=== PATIENT | male | born 2000 | race Caucasian/White ===

== ENCOUNTER 2024-01-07 06:28 | Inpatient (IN) | payer OTHER, SELFPAY ==
[2024-01-07] VITALS (12 sets, daily range): BP systolic 100–119; BP diastolic 55–79; BMI 20.1
--- NOTE | 2024-01-07 04:17 | DOWNTIME ---
There was a [employer] Senior Procurement Specialist Downtime on 12/10/2023 from 0100 to 12/10/2023 at 0300. Downtime documentation of patient's care, including medication administrations, has been reconciled in the electronic record per guidelines. Refer to the
patient's paper chart under the miscellaneous tab to see printed paper medication records and downtime forms.
--- NOTE | 2024-01-07 04:34 | DOWNTIME ---
There was a [employer] Control Panel Builder Downtime on 01/07/2024 from 0100 to 01/07/2024 at 0355. Downtime documentation of patient's care, including medication administrations, has been reconciled in the electronic record per guidelines. Refer to the
patient's paper chart under the miscellaneous tab to see printed paper medication records and downtime forms.
[2024-01-07 04:51] LABS: % Basophils 0.2 % (0-2); % Immature Granulocytes 0.5 % (0-0.5); % Lymphocytes 5.3 % (20.5-51.1); % Monocytes 4.9 % (1.7-9.3); % Neutrophils 89.1 % (42.2-75.2); Absolute Immature Granulocytes 0.1 10^3/uL (0-0.05); Absolute Lymphocytes 1.1 10^3/uL (1.2-3.4); Absolute Neutrophils 18.4 10^3/uL (1.4-6.5); Hematocrit 43.2 % (39.0-52.0); Hemoglobin 15.7 g/dL (13.0-18.0); Mean Corp Hgb Conc. 36.3 g/dL (33.0-37.0); Mean Corpuscular Hgb 30.1 pg (27.0-31.0); Mean Corpuscular Volume 82.9 fL (80.0-94.0); Mean Platelet Volume 9.4 fL (7.4-10.4); Nucleated Red Blood Cells % 0 % (-); Platelet Count 239 10^3/uL (130-400); Red Blood Cell Count 5.21 10^6/uL (4.70-6.10); Red Cell Dist. Width 11.9 % (11.5-14.5); White Blood Cell Count 20.6 10^3/uL (4.8-10.8)
--- NOTE | 2024-01-07 04:52 | ED.GENMED ---
History of Present Illness
<LANA Lawrence - Last Filed: 01/07/24 06:14>
General
Chief Complaint: Abdominal Pain
Source: patient and significant other (father)
Time Seen by Provider: 01/07/24 04:14
History of Present Illness
History of Present Illness:
Patient is a 23 yo male presenting to the ED with abdominal pain x 6 hours. The pain is generalized to the entire abdomen and was a 9/10 pain but has subsided to a 4/10 pain since arriving at the hospital. He denies any radiation of the pain to
specific quadrants. He admits to nausea and multiple bouts of non bloody vomit over the last 6 hours. He was afebrile upon admission with an oral temp of 98.4F. He also admits to feeling bloated which has subsided since admission, but denies passing
any gas. His last meal was at 7PM. His last bowel movement was at 0130 just before arriving in the ED.
Past History
<LANA Lawrence - Last Filed: 01/07/24 06:14>
Past History
ED Past Medical History: None
Social History
Living: with family
Family History
Family History: Diabetes (t2dm father ) and Cancer (breast mother )
Review of Systems
<LANA Lawrence - Last Filed: 01/07/24 06:14>
Review of Systems
Allergies reviewed?: Yes
Constitutional: Denies fever, fatigue or chills
Respiratory: Denies cough
Cardiac: Denies chest pain
ABD/GI: Reports abdominal pain, nausea and vomiting; Denies diarrhea or constipated
Neurological: Denies headache
Phy Exam
<LANA Lawrence - Last Filed: 01/07/24 06:14>
General Physical Exam
General Presentation: well appearing and no apparent distress
General age: appears stated age
General Skin: warm and dry
General Habitus: normal
General Mental: alert
General Hydration: appears well hydrated
Cardiovascular Exam
Cardiovascular Exam: regular rate/rhythm, no gallop, no murmur and normal peripheral pulses (radial)
Pulmonary Exam
Pulmonary Exam: lungs clear, no respiratory distress, no rales, no crackles and no rhonchi
Gastrointestinal Exam
Gastrointestinal Exam: normal bowel sounds, soft, distended, guarding (RLQ guarding noted ) and other
Palpation: left upper quadrant: Mild tenderness (hyper resonant to percussion ), left lower quadrant: Mild tenderness (hyper resonant to percussion ), right upper quadrant: Mild tenderness (hyper resonant to percussion ) and Other (Positive
Mcburnies tenderness, negative rovsings, negative poas), right lower quadrant: Mild tenderness (hyper resonant to percussion ) and generalized: Mild tenderness (hyper resonant to percussion )
Auscultation of Abdomen: normal
Neurological Exam
Neurological Exam: alert and oriented x3
Skin Exam
Skin Exam: normal color, warm/dry and no rash
Course
<LANA Lawrence - Last Filed: 01/07/24 06:14>
Orders/Labs/Results
Orders:
Orders
01/07/24 04:40
Complete Blood Count/With Diff Urgent
Comprehensive Metabolic Panel Urgent
Lipase Urgent
01/07/24 05:10
CT Abd/pelvis W Iv Cont Urgent
Comment:
Reason For Exam: Periumbilical pain
01/07/24 06:02
Piperacillin/Tazo 4.5 Gram [Zosyn] 4.5 gram in 100 ml IV NOW
Abnormal Lab Results
01/07/24
04:40
WBC 20.6 H 10^3/uL
(4.8-10.8)
Abs Immat Gran (auto) 0.1 H 10^3/uL
(0-0.05)
Absolute Neuts (auto) 18.4 H 10^3/uL
(1.4-6.5)
Absolute Lymphs (auto) 1.1 L 10^3/uL
(1.2-3.4)
Absolute Monos (auto) 1.0 H 10^3/uL
(0.1-0.6)
Neutrophils % 89.1 H %
(42.2-75.2)
Lymphocytes % 5.3 L %
(20.5-51.1)
Glucose 102 H mg/dl
(70-99)
Total Bilirubin 1.6 H mg/dl
(0.2-1.3)
Albumin 5.1 H g/dl
(3.5-5.0)
01/07/24 04:40
01/07/24 04:40
Vital Signs
Initial and Last Documented VS:
Initial Vital Signs
BP Pulse Ox
110/79 97
01/07/24 04:25 01/07/24 04:25
Last Documented Vital Signs
BP Pulse Ox
119/67 96
01/07/24 06:00 01/07/24 06:00
Elilt;Deniz Hurley, DO - Last Filed: 01/07/24 06:05>
Orders/Labs/Results
Orders:
Orders
01/07/24 04:40
Complete Blood Count/With Diff Urgent
Comprehensive Metabolic Panel Urgent
Lipase Urgent
01/07/24 05:10
CT Abd/pelvis W Iv Cont Urgent
Comment:
Reason For Exam: Periumbilical pain
01/07/24 06:02
Piperacillin/Tazo 4.5 Gram [Zosyn] 4.5 gram in 100 ml IV NOW
Abnormal Lab Results
01/07/24
04:40
WBC 20.6 H 10^3/uL
(4.8-10.8)
Abs Immat Gran (auto) 0.1 H 10^3/uL
(0-0.05)
Absolute Neuts (auto) 18.4 H 10^3/uL
(1.4-6.5)
Absolute Lymphs (auto) 1.1 L 10^3/uL
(1.2-3.4)
Absolute Monos (auto) 1.0 H 10^3/uL
(0.1-0.6)
Neutrophils % 89.1 H %
(42.2-75.2)
Lymphocytes % 5.3 L %
(20.5-51.1)
Glucose 102 H mg/dl
(70-99)
Total Bilirubin 1.6 H mg/dl
(0.2-1.3)
Albumin 5.1 H g/dl
(3.5-5.0)
01/07/24 04:40
01/07/24 04:40
Vital Signs
Initial and Last Documented VS:
Initial Vital Signs
BP Pulse Ox
110/79 97
01/07/24 04:25 01/07/24 04:25
Last Documented Vital Signs
BP Pulse Ox
119/67 96
01/07/24 06:00 01/07/24 06:00
<LANA Lawrence - Last Filed: 01/07/24 06:14>
MDM/Problems Addressed
Differential Diagnosis Includes:
acute appendicitis,bacterial gastroenteritis,
<Deniz Hurley DO - Last Filed: 01/07/24 06:05>
MDM/Problems Addressed
Chronic conditions affecting care:
none
<Deniz Hurley DO - Last Filed: 01/07/24 06:05>
*Radiology
Radiology exam reviewed: radiology read reviewed
*Critical Care Note
Total Time (30-74mins, 75-104mins- exclusive of procedures): Not Applicable
Data Reviewed
Review of Other/Old Records Reveals: Labs
Source: patient and family
<Deniz Hurley DO - Last Filed: 01/07/24 06:05>
Patient Management
Social determinants of health affecting care: Strong social support
Discussion with other providers: Waitstaff Captain (Dr Barajas)
Escalation/DeEscalation of care consider admission/obs:
Patient with acute appendicitis to be admitted to the general surgery service. House nurse practitioner aware. Dr. Barajas excepted him on his service.
<LANA Lawrence - Last Filed: 01/07/24 06:14>
Update Note
Update Note:
0555 update: Was resting comfortably when I entered the room. He currently has no abdominal pain. He did not have any questions or concern for me at this time. Will continue to monitor.
<Deniz Hurley DO - Last Filed: 01/07/24 06:05>
Update Note
Update Note:
0555 update: Was resting comfortably when I entered the room. He currently has no abdominal pain. He did not have any questions or concern for me at this time. Will continue to monitor.
CT Abdomen and Pelvis (with IV contrast):
IMPRESSION:
The appendix is dilated to 12 mm with associated mucosal hyperenhancement. Findings are consistent with acute uncomplicated appendicitis. No perforation or abscess.
Moderate to large amount of stool throughout the colon.
Findings discussed with Dr. Hurley at 5:53 AM EST.
ED Attending Note
<LANA Lawrence - Last Filed: 01/07/24 06:14>
-
Portions of this chart may have been created with voice recognition software.� Occasional wrong word or��sound alike� substitutions may have occurred due to the inherent limitations of voice recognition software.
Discharge Plan
Departure
Patient Disposition: Admit
Date of Disposition: 01/07/24
Time of Disposition: 06:03
Admit to: Med/Surg
Presentation/result/management discussed w/ accepting MD/: Karl
Discharge Problem:
Acute appendicitis
Referrals:
Jewel Hunter DO [Family Provider] -
Interventions
Interventions:
*Risk Screen - Suicide Last Done: 01/07/24 04:28
*General Assessment Last Done: 01/07/24 04:28
*Neglect/Abuse Screening Last Done: 01/07/24 04:28
ED- Fall Risk Assessment Last Done: 01/07/24 04:25
*ED COVID-19 Vaccine History Last Done: 01/07/24 04:28
YV-Vrjwbb-Oroulbvyil Assessment Last Done: 01/07/24 04:25
Discharge Date and Time
Print Language: CENTRAL AFRICAN
[2024-01-07 05:02] LABS: ALT (SGPT) 32 U/L (0-50); AST (SGOT) 30 U/L (17-59); Albumin 5.1 g/dl (3.5-5.0); Alkaline Phosphatase 79 U/L (38-126); Blood Urea Nitrogen 17 mg/dl (9-20); Carbon Dioxide 27 mmol/L (22-30); Chloride 99 mmol/L (98-107); Estimated Creatinine Clearance > 125 ml/min; Glucose 102 mg/dl (70-99); Lipase 59 U/L (23-300); Potassium 3.9 mmol/L (3.5-5.1); Sodium 138 mmol/L (135-145); Total Bilirubin 1.6 mg/dl (0.2-1.3); Total Protein 7.5 g/dl (6.3-8.2); eGFR > 60.00
[2024-01-07] MEDS: ZOSYN 100 IV (06:04)
--- NOTE | 2024-01-07 06:25 | DOWNTIME ---
There was a [employer] Client [employer] Downtime on 01/07/2024 from 0100 to 01/07/2024 at 0355. Downtime documentation of patient's care, including medication administrations, has been reconciled in the electronic record per guidelines. Refer to the
patient's paper chart under the miscellaneous tab to see printed paper medication records and downtime forms.
--- NOTE | 2024-01-07 06:32 | HP.FOC2 ---
Addendum entered and electronically signed by Emigdio Barajas MD 01/07/24 13:31:
Imaging reviewed again. On the sagittal cuts there are more convincing images of an apparent dilated inflamed appendix. Surgery was offered in view of this new interpretation. Pt and mom wish to proceed with lap appy. OCTOR
Addendum entered and electronically signed by Emigdio Barajas MD 01/07/24 12:20:
I saw and examined the patient.
The Physical Fitness Trainer's note was reviewed and I agree with the note.
Comment: Pt seen and evaluated at bedside. His pain has resolved and he feels back to baseline. He describes an episode of xochitl-umbilical pain without migration nor radiation. The pain was gone by the time he arrived. He did have some associated
n/v, denies f/c. No changes to urine or stool. He reports similar crampy type pain, less severe, a few times in the past. He denies frequent diarrhea and blood in the stool or on the toilet paper. His exam is notable for very minimal ttp to RLQ and
suprapubic area. There is a leukocytosis of 20K with neutrophilia. No UA was performed. The CT images are equivocal, though Radiology notes a slightly dilated appendix with wall enhancement, there is no stranding and no fecalith. On my
interporetation it is unclear if the structure measured is the appendix of the terminal ileum. Gross score of 6, equicoval for acute appendicitis. Other possible dx's include terminal ileitis, nephrolithiasis, other. We discussed the mixed
diagnostic picture and laparoscopic appendectomy was offered. An alternative plan with admission, observation, IV abx was presented and this plan was preferred by patient and family. If he continues to improve, would likely DC tomorrow with PO abx.
If he declines, would plan for lap appy. Will add UA to look for hematuria or sterile pyuria.
Original Note:
Focused History & Physical
Chief Complaint
HPI:
Chief Complaint: Abdominal Pain
HPI / Indication for Planned Procedure:
23 YOM, no significant PMH present to the ED with generalized abdominal pain that started at pain level of 9/10 then to 4/10 since arrival to the hospital. He reports nausea and bouts of nonbloody vomiting in the past 6hrs prior to coming to the
hospital. Also reports bloating and + passing flatus. His last meal was 7PM last evening, and last BM at 0130 before arriving to the ED. Patient denies chest pain, fever, sob and abdominal pain at this time.
Relevant Past Medical History: Negative
Relevant Social History: Negative
Relevant Family History: Negative
Relevant Past Surgical History: Negative
Review of Systems
Review of Pertinent Systems: All Systems Negative
Medication
See Medication form for detailed medications: No
Medication List (including Herbals & OTC):
Ashwagandha 1 pill daily (started about 1 week ago)
Medications Reviewed: Yes
Allergies and Reactions
Patient has Allergies: No
Noted Allergies and Reactions:
Allergy/AdvReac Type Severity Reaction Status Date / Time
No Known Allergies Allergy Unverified 10/04/11 13:51
Pertinent Physical Exam
All Other Systems: Negative
Head/Neck: Normal
Lungs: Normal
Heart: Normal
Abdomen: Normal
Extremities: Normal
Neurological: Normal
Diagnosis / Assessment
23 YOM present to the ED with generalized abdominal pain that started at pain level of 9/10, now with no pain - no pain medication given. + bloating and + flatus. WBC 20.6 Patient denies chest pain, fever, sob.
Plan / Procedure
Admit under Dr. Barajas surgery service
# Abdominal Pain/Appendicitis
- NPO
- Abx Zosyn
- Surgery
DVT Px SCD
Full code
[2024-01-07] MEDS: ZOSYN 50 IV (12:38)
--- NOTE | 2024-01-07 15:11 | OR.RPT ---
Operative Report
Operative Report
Primary Surgeon: Karl
Pre-op Diagnosis: Acute appendicitis
Post-op Diagnosis: Same
Procedure Performed: Laparoscopic appendectomy
Anesthesia Type: GETA
Specimen / Cultures: Appendix
Estimated Blood Loss: 5cc
Complications: None immediate
Operative Findings: Mildly inflamed hyperemic appendix, scant turbid fluid in pelvis suctioned
Date of Surgery: 01/07/24
Indications: This 23M developed periumbilical abdominal pain and on workup was found to have acute appendicitis. Laparoscopic appendectomy was elected.
Description of procedure: The patient was placed on the operating table in the supine position. General anesthesia was induced. A time-out was completed verifying correct patient, procedure, site, positioning, and special equipment prior to
beginning this procedure. An orogastric tube was placed. The abdomen was prepped and draped in the usual sterile fashion. A stab incision was made in left upper quadrant and the Veress needle was inserted. Proper position was confirmed by aspiration
and saline meniscus test. The abdomen was insufflated with carbon dioxide to a pressure of 12 mmHg. The patient tolerated insufflation well.
A 5mm optical trocar was then inserted at the left lower quadrant. The laparoscope was inserted and the abdomen inspected. No injuries from initial trocar placement or Veress needle insertion were noted. Additional trocars were then inserted in the
following locations: a 12-mm trocar at the umbilicus and a 5-mm trocar midline in the suprapubic space. The abdomen was inspected and no abnormalities were found. The table was placed in the Trendelenburg position with the right side up. The tip of
the appendix was gently grasped with an atraumatic grasper and retracted toward the patient�s feet and abdominal wall. This maneuver exposed the appendiceal blood supply which was controlled with the voyant device. Following this, a laparoscopic
linear cutting stapler with a 45mm kwok load was deployed and used to transect the appendix at its base. The appendix was placed in an endoscopic retrieval bag, removed through the umbilical port, and passed off the table as a specimen.
We then turned our attention to the staple line, which was noted to be hemostatic. Scant turbid fluid was suctioned from the pelvis. The umbilical trocar site was closed at the fascial level laparoscopically with 2-0 PDS under direct vision.
Secondary trocars were removed under direct vision and noted to be hemostatic. The laparoscope was withdrawn and the abdomen was allowed to collapse. The skin was closed with subcuticular sutures of 4-0 monocryl and topical skin adhesive. The
orogastric tube was removed.
The patient tolerated the procedure well and was taken to the postanesthesia care unit in stable condition.
[2024-01-07] MEDS: DILAUDID 0.5 MG IV (15:55)
== END 2024-01-07 17:30 | disposition home or self-care (01) | DRG 399 ==
LOC: PACUI 06:28
PROVIDERS: ADMITTING PHYSICIAN Surgery; EMERGENCY PHYSICIAN Student in an Organized Health Care Education/Training Program; FAMILY PHYSICIAN Student in an Organized Health Care Education/Training Program
PROC: 0DTJ4ZZ Resection of Appendix, Percutaneous Endoscopic Approach (ICD-10-PCS; 2024-01-07)
DX: K35.80 Unspecified acute appendicitis (principal)
CPT/HCPCS: 88304; 74177; 80053; 83690; 85025; 96365; 99285; C1776; Q9967